=== PATIENT | female | born 1965 | race Caucasian/White ===

== ENCOUNTER 2020-07-23 15:28 | Emergency (ER) | payer OTHER, SELFPAY ==
[2020-07-23 15:34] VITALS: BP 123/77; PULSE 81; RESP 22; TEMP 36.7; O2SAT 99
--- NOTE | 2020-07-23 15:37 | ED.WOUNDLAC ---
HPI - Wound/Laceration General Chief Complaint: Wound/Laceration Stated Complaint: fall, right knee wound Time Seen by Provider: 07/23/20 15:28 Source: patient Mode of arrival: Ambulatory History of Present Illness HPI narrative: Otherwise healthy 55-year-old woman stumbled in flip-flops going down of boat incline. She stubbed her right toe and there is a small abrasion to the dorsum of her foot and she suffered laceration just under her knee that does not appear to involve the joint itself. She has no bony tenderness and was able to walk into the emergency department with minimal difficulty. She does not describe any other injuries, she did not hit her head. She is feeling a little lightheaded after seeing the wound and the blood. Much better when she is lying flat. Review of Systems Review of Systems Narrative: Remainder of complete review of systems is otherwise unremarkable except for that included in the HPI. Exam Narrative Exam Narrative: General: Alert appropriate in no acute distress Respiratory: Able to speak in full sentences, no obvious respiratory distress Skin: No obvious rashes, warm and dry Neurologic: Grossly intact no obvious asymmetries or abnormalities Psych: appropriate insight and affect, cooperative Extremity: 5 cm flap-like laceration over the extensor surface of her knee. There is a minor abrasion over the dorsum of the foot and the great toe. She is neurovascularly intact. Knee is unremarkable with full range of motion and no effusion. Initial Vital Signs Initial Vital Signs: Vital Signs Temperature 98.1 F 07/23/20 15:34 Pulse Rate 81 07/23/20 15:34 Respiratory Rate 22 07/23/20 15:34 Blood Pressure 123/77 07/23/20 15:34 Pulse Oximetry 99 07/23/20 15:34 Procedures Laceration Repair Right knee: Site: lower extremity Side (If applicable): left Size (cm): 5 Description: flap, irregular and clean Depth: simple, single layer Local Anesthetic: lidocaine 1% Amount of anesthesia used (mL): 8 Pre-repair: wound explored, irrigated extensively and deep structures intact Skin layer closed with: vicryl Size (cm): 3-0 Number of sutures: 5 Technique: simple, interrupted Course Orders Ordered: Discontinued Medications Bacitracin (Bacitracin Oint 0.9 Gm Pckt) 5 applic TOP NOW ONE Stop: 07/23/20 15:43 Last Admin: 07/23/20 16:09 Dose: 5 applic Documented by: Diphtheria/Tetanus/Acell Pertussis (Tet,Diph,Pertuss(Acell),Vac/Pf 0.5 Ml Syringe) 0.5 ml IM .ONCE ONE Stop: 07/23/20 15:43 Last Admin: 07/23/20 16:09 Dose: 0.5 ml Documented by: Lidocaine/Sodium Bicarbonate (Lido 1%/Sod Bicarb 8.4% (10ml) 10 Ml Syringe) 10 ml INJ NOW ONE Stop: 07/23/20 15:43 Last Admin: 07/23/20 16:08 Dose: 10 ml Documented by: Vital Signs Vital signs: Vital Signs - 8 hr 07/23/20 15:34 Temperature 98.1 F Pulse Rate 81 Respiratory Rate 22 Blood Pressure 123/77 Pulse Oximetry 99 MDM - Wound/Laceration Medical Records Attestation: I reviewed the patient's medical records. MDM Narrative Medical decision making narrative: 55-year-old woman a stumbled with her she is going down ramp and had flap-like laceration just under her right knee with no joint involvement. No bony tenderness or need for imaging. Sutured without difficulty and patient is safe for home discharge Discharge Plan Departure Patient Disposition: Home Clinical Impression: Laceration, Abrasion Instructions: DI for Laceration Repair Activity Restrictions/Additional Instructions: Thank you for coming in today With a laceration over the extensor surface like this, the risk for pulling apart of the stitches come out to soon is high. I am going to suggest that you have the sutures out on the . Please keep the wound covered. Using antibiotic ointment for the 1st couple of days will be helpful but you probably do not need to continue this entire time. The abrasions over the foot will heal nicely. If you notice new findings, any signs of infection or other complications, please feel free to return to the emergency department.
[2020-07-23] MEDS: LIDO 1%/SOD BICARB 8.4% (10ML) 10 ML SYRINGE INJ (16:08)
[2020-07-23] MEDS: BACITRACIN OINT 0.9 GM PCKT 5 APPLIC TOP (16:09)
[2020-07-23] MEDS: TET,DIPH,PERTUSS(ACELL),VAC/PF 0.5 ML SYRINGE IM (16:09)
[2020-07-23 16:39] VITALS: BP 120/73; PULSE 77; RESP 16; O2SAT 100
== END 2020-07-23 16:40 | disposition home or self-care (01) ==
PROVIDERS: Emergency Provider Emergency Medicine
DX: S81.011A Laceration without foreign body, right knee, initial encounter (principal); S90.811A Abrasion, right foot, initial encounter; W19.XXXA Unspecified fall, initial encounter; Z23 Encounter for immunization
CPT/HCPCS: 12002; 90471; 99283; 99284; 90715